=== PATIENT | female | born 1985 | race Caucasian/White ===

== ENCOUNTER 2024-08-16 05:25 | Inpatient (IN) | payer OTHER ==
[2024-08-16 06:17] LABS: Fetal Membranes Rupture RUPTURE DETECTED (No Rupture)
[2024-08-16] MEDS ORDERED: Misoprostol 200 MCG TAB PR PRN (06:37)
[2024-08-16] MEDS ORDERED: Methylergonovine 0.2 MG/ML VIAL IM PRN (06:37)
[2024-08-16] MEDS ORDERED: hydrALAZINE 20 MG/ML VIAL SLOW IVP PRN ×2 (06:37→21:09)
[2024-08-16] MEDS ORDERED: Lidocaine 1% (PF) 30 ML VIAL SC PRN (06:37)
[2024-08-16] MEDS ORDERED: Acetaminophen 500 MG TAB PO PRN (06:37)
[2024-08-16] MEDS ORDERED: Diphenoxylate HCl/Atropine Tablet PO PRN ×2 (06:37)
[2024-08-16] MEDS ORDERED: Carboprost 250 MCG/ML AMP IM PRN (06:37)
[2024-08-16] MEDS ORDERED: HYDROcodone/Acetaminophen 5/325 mg Tablet PO PRN ×2 (06:37)
[2024-08-16] MEDS ORDERED: fentaNYL 50 mcg/mL 1 mL Vial SLOW IVP PRN (06:37)
[2024-08-16] MEDS ORDERED: Tranexamic Acid 1,000 MG/10 ML VIAL IVP PRN (06:37)
[2024-08-16] MEDS ORDERED: Promethazine HCl 25 MG/ML VIAL IM PRN ×2 (06:37→12:08)
[2024-08-16] MEDS ORDERED: Oxytocin 30 units/NS 500 ML 500 ML IV SCH (06:45)
[2024-08-16] MEDS ORDERED: Lactated Ringer's 1,000 ML IV SCH (06:45)
[2024-08-16 07:01] VITALS: BMI 29.4
[2024-08-16 07:14] LABS: Hematocrit 33.1 % (34.9-44.5); Hemoglobin 11.1 g/dL (12.0-15.5); Mean Corpuscular HGB CONC 33.5 g/dL (32.0-36.0); Mean Corpuscular Hemoglobin 31.7 pg (27.0-33.0); Mean Corpuscular Volume 94.6 fL (81.6-98.3); Mean Platelet Volume 11.1 fL (7.4-10.4); Platelet Count 213 10x3/uL (150-450); RBC Distribution Width 12.5 % (11.5-14.5); White Blood Cell (WBC) Count 9.7 10x3/uL (3.5-10.5)
[2024-08-16 07:50] LABS: HBsAg Index 0.28 S/CO (0-0.99); Hep B Surf Ag - L&D Non-Reactive S/CO (NonReactive)
[2024-08-16 07:51] LABS: Syphilis Antibody Nonreactive (Nonreactive); Syphilis Antibody Index 0.03 S/CO (<1.00 Non-Reactive)
[2024-08-16] MEDS: Oxytocin 30 units/NS 500 ML 500 ML IV SCH (09:20)
[2024-08-16] MEDS: Ondansetron PF 4 MG/2 ML Vial IVP PRN (09:53)
[2024-08-16] MEDS: fentaNYL/Ropivacaine Epidural 100 ML ONE (11:59)
[2024-08-16] MEDS ORDERED: Moisturizing Cream (Eucerin) 113 GM JAR TOP PRN (12:08)
[2024-08-16] MEDS ORDERED: diphenhydrAMINE 50 MG/ML VIAL IVP PRN (12:08)
[2024-08-16] MEDS ORDERED: Ondansetron PF 4 MG/2 ML Vial IVP PRN (12:08)
[2024-08-16] MEDS ORDERED: Acetaminophen 325 MG TAB PO PRN (12:08)
[2024-08-16] MEDS ORDERED: Naloxone HCl 0.4 mg/ml Vial IVP PRN ×2 (12:08)
[2024-08-16] MEDS ORDERED: Lactated Ringer's 500 ML IV PRN (12:08)
[2024-08-16] MEDS ORDERED: ePHEDrine Sulfate 50 MG/10 ML VIAL SLOW IVP PRN (12:08)
[2024-08-16] MEDS ORDERED: fentaNYL 2 mcg/Ropivacaine 0.2% Epidural 100 ML CADD EPIDURAL SCH (12:15)
[2024-08-16] MEDS ORDERED: Communication Order-Pharmacy FS SCH (12:15)
[2024-08-16] MEDS: Ibuprofen 800 MG TAB PO PRN (18:31)
[2024-08-16] MEDS ORDERED: Bisacodyl 10 MG SUPP PR PRN (21:09)
[2024-08-16] MEDS ORDERED: Milk Of Magnesia 30 ML UDCUP PO PRN (21:09)
[2024-08-16] MEDS ORDERED: Boostrix 0.5 ML (Tdap) VIAL (>/=7 yrs of age) IM ONE (21:09)
[2024-08-16] MEDS ORDERED: diphenhydrAMINE 25 MG CAP PO PRN (21:09)
[2024-08-16] MEDS ORDERED: Lanolin Ointment 7 GM TUBE TOP PRN (21:09)
[2024-08-16] MEDS: Benzocaine-Menthol 82.5 ML CAN TOP PRN (21:41)
[2024-08-16] MEDS: Docusate 100 MG CAP PO SCH (21:41)
[2024-08-16] MEDS ORDERED: Ibuprofen 800 MG TAB PO SCH (22:00)
[2024-08-17] MEDS ORDERED: HYDROcodone/Acetaminophen 5/325 mg Tablet PO PRN (00:12)
[2024-08-17] MEDS: Acetaminophen 500 MG TAB PO PRN (00:56)
[2024-08-17] MEDS: Ibuprofen 800 MG TAB PO SCH (03:03)
[2024-08-17] MEDS: Prenatal Vitamin 1 TAB PO SCH (09:12)
[2024-08-17] MEDS: Milk Of Magnesia 30 ML UDCUP PO SCH (09:12)
[2024-08-17] MEDS: Docusate 100 MG CAP PO SCH (09:13)
[2024-08-17] MEDS: Ferrous Sulfate 325 MG TAB PO SCH (09:14)
[2024-08-17] MEDS: Benzocaine/Menthol 1 LOZ LOZ PO PRN (11:19)
[2024-08-17] MEDS: guaiFENesin ER 600 MG TAB PO SCH (21:50)
[2024-08-18 08:13] VITALS: BP 98/60; TEMP 98.3
== END 2024-08-18 14:05 | disposition home or self-care (01) | DRG 768 ==
LOC: CSHLD/OP 05:25 → CSHLD 06:22 → CSHPED 20:50
PROVIDERS: ADMIT Obstetrics & Gynecology; ATTEND Obstetrics & Gynecology
PROC: 10E0XZZ Delivery of Products of Conception, External Approach (ICD-10-PCS; principal; 2024-08-16)
PROC: 0DQR0ZZ Repair Anal Sphincter, Open Approach (ICD-10-PCS; 2024-08-16)
PROC: 3E0334Z Introduction of Serum, Toxoid and Vaccine into Peripheral Vein, Percutaneous Approach (ICD-10-PCS; 2024-08-17)
DX: O48.0 Post-term pregnancy (principal); Z37.0 Single live birth; O70.21 Third degree perineal laceration during delivery, IIIa; Z3A.40 40 weeks gestation of pregnancy; Z88.2 Allergy status to sulfonamides; R33.9 Retention of urine, unspecified
CPT/HCPCS: 36415; 51702; 84112; 85027; 85461; 86780; 86850; 86870; 86900; 86901; 87340; 90384; 96372; 99285; J2405; J2590

== ENCOUNTER 2024-08-24 14:26 | Emergency (ER) | payer OTHER ==
[2024-08-24 16:07] LABS: Bilirubin Neg (Negative); Blood, Urine 250 (Negative); Clarity Clear (Clear); Glucose, Urine (Dipstick) Normal (Negative); Ketone, Urine Negative (Negative); Leukocyte 500 (Negative); Nitrite Negative (Negative); Protein, Urine (Dipstick) 15 mg/dl (Neg-Trace); Specific Gravity, Urine 1.005 (1.005-1.030); Urobilinogen Normal mg/dL (Less than 2)
[2024-08-24 16:16] LABS: Bacteria/HPF Rare-Few HPF (None Seen); CAUTI Indications for Culture Pregnancy; Squamous Epithelial 0-3 HPF (0-3)
[2024-08-24 16:17] LABS: Urine Culture Reflex Yes Yes
== END 2024-08-24 16:31 | disposition home or self-care (01) ==
LOC: CSHERS 14:26
DX: O72.1 Other immediate postpartum hemorrhage (principal); O86.20 Urinary tract infection following delivery, unspecified; N39.0 Urinary tract infection, site not specified
CPT/HCPCS: 81001; 87086; 99284